=== PATIENT | male | born 1985 ===

== ENCOUNTER 2021-10-14 18:46 | Emergency (ER) | payer SELFPAY ==
[2021-10-14] MEDS ORDERED: ONDANSETRON 4 MG/2 ML INJ IV ONE (19:17)
[2021-10-14] MEDS ORDERED: HYDROmorphone 1 MG/1 ML INJ IV ONE (19:17)
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
--- NOTE | 2021-10-14 19:36 | XRay Report ---
RIGHT WRIST 3 VIEWS INDICATION / CLINICAL INFORMATION: Right wrist deformity. COMPARISON: None available. FINDINGS: BONES / JOINT(S): There is an acute, comminuted fracture of the distal radial metaphysis with mild im paction and dorsal angulation of the distal fracture fragment. No intra-articular extension is seen. The ulna and carpal bones are intact. There is no evidence of dislocation. No significant arthritis. SOFT TISSUES: There is mild associated soft tissue swelling, best seen dorsally. ADDITIONAL FINDINGS: None. IMPRESSION: Acute comminuted fracture of the distal radial metaphysis. Signer Name: Ryan Saxena MD Signed: 10/14/2021 7:31 PM Workstation Name: [id number]
[2021-10-15 05:03] VITALS: BP 117/77
== END 2021-10-14 20:50 | disposition home or self-care (01) ==
LOC: ED 18:46
DX: S52.501A Unspecified fracture of the lower end of right radius, initial encounter for closed fracture (principal); V49.49XA Driver injured in collision with other motor vehicles in traffic accident, initial encounter; Y93.89 Activity, other specified; Y92.89 Other specified places as the place of occurrence of the external cause; Y99.8 Other external cause status
CPT/HCPCS: 29125; 73110; 96374; 96375; 99283; J1170; J2405